=== PATIENT | male | born 1975 | race Caucasian/White ===

== ENCOUNTER → 2018-12-09 | Outpatient (REF) | LOC: AUD 09:33 | PROVIDERS: ATTEND Internal Medicine | DX: Z46.1 Encounter for fitting and adjustment of hearing aid (principal) | CPT/HCPCS: 92552 ==

== ENCOUNTER 2019-03-17 14:27 | Emergency (ER) | payer OTHER ==
[2019-03-17 14:32] VITALS: BP 133/74
--- NOTE | 2019-03-17 14:40 | ER Report ---
History and Physical Time Seen By MD: 14:39 Hx. of Stated Complaint: pt caught l middle finger between 2 large rocks 1 hour ago. HPI/ROS CHIEF COMPLAINT: Trauma to the finger HISTORY OF PRESENT ILLNESS: 43-year-old male who was outside working moving [place] a local park a rock fell on his fingers getting obvious crush injury to the nailbed of his index protection middle finger of his nondominant left hand no other injuries noted REVIEW OF SYSTEMS: Respiratory: No cough, no dyspnea. Cardiovascular: No chest pain, no palpitations. Gastrointestinal: No vomiting, no abdominal pain. Musculoskeletal: Left finger pain Remainder of the 14 system rev: Yes Allergies: Coded Allergies: No Known Drug Allergies (Unverified , 03/17/19) Home Meds No Active Prescriptions or Reported Meds Reviewed Nurses Notes: Yes Old Medical Records Reviewed: Yes Hx Substance Use Disorder: No Hx Alcohol Use: Yes (1 nightly) Constitutional Vital Sign - Last 24 Hours 03/17/19 14:32 Temp 98.2 Pulse 61 Resp 20 B/P (MAP) 133/74 Pulse Ox 94 O2 Delivery Room Air Physical Exam General appearance: Alert no distress. Respiratory: Chest is non tender, lungs are clear to auscultation. Cardiac: Regular rate and rhythm [ ] Left hand examination examination N shows an obvious crush injury to the left distal tuft of the finger involving the proximal nailbed nail is still intact there is an obvious laceration and around the proximal nail bed able to flex the PIP/DIP neurovascular intact otherwise unremarkable DIFFERENTIAL DIAGNOSIS: After history and physical exam differential diagnosis was considered for nail finger crush injury Medical Decision Making ED Course/Re-evaluation ED Course ED course 43 year male who had his finger crushed between 2 rocks an obvious laceration proximal to the to the nail bed of his dominant middle finger of his left hand 4 sutures were placed Procedural note patient had a digital block performed with good anesthesia had 4 interrupted sutures placed proximal in tacking down the nailbed and nail is still intact at time of procedure patient will be cleaned sterilely dressed copiously irrigated prior to procedure patient tolerated well sterile dressing applied after Orthopedics we consult due to a small distal tuft fracture to confirm that this is not requiring wash on the OR and then have him follow up accordingly we'll start him on by mouth antibiotics Decision to Disposition Date: Mar 17, 2019 Decision to Disposition Time: 15:47 Depart Departure Latest Vital Signs Vital Signs Date Time Temp Pulse Resp B/P (MAP) Pulse Ox O2 Delivery O2 Flow Rate FiO2 03/17/19 14:32 98.2 61 20 133/74 94 Room Air Impression: Primary Impression: Open fracture Condition: Improved Disposition: HOME OR SELF-CARE Referrals: LOUANN BELL MD 5 Days New Scripts No Active Prescriptions or Reported Meds Patient Instructions: Open Finger Fracture ([facility]) CAMACHO AMEZQUITA MD Mar 17, 2019 14:42
[2019-03-17] MEDS ORDERED: DIPHTH/TETANUS/ACEL. PERTUSSIS IM ONLY ONE (14:45)
--- NOTE | 2019-03-17 15:15 | RADIOLOGY IMAGING REPORT ---
FACILITY: [facility] PATIENT NAME: Morris Johnson : 1975 MR: [id number] V: [id number] EXAM DATE: ORDERING PHYSICIAN: CAMACHO AMEZQUITA TECHNOLOGIST: Location: [facility] Patient: Morris Johnson : 1975 Visit/Account:[id number] Date of Sevice: 03/17/2019 Exam type: HAND LIMITED LEFT History: trauma, smashed left third finger nail Comparison: None. Findings: Two views were submitted. There is a small fracture through the distal tuft of the distal phalanx of the left third finger with approximate 2 mm diastases of the fracture fragments. There is associate d soft tissue swelling IMPRESSION: 1. Small fracture through the distal tuft of the distal phalanx of the left third finger with approx imately 2 mm diastases of the fracture fragments and associated soft tissue swelling Report Dictated By: Diamante Schultz MD at 03/17/2019 3:10 PM Report E-Signed By: Diamante Schultz MD at 03/17/2019 3:11 PM [email or web address]
== END 2019-03-17 16:08 | disposition home or self-care (01) ==
LOC: ER 14:44
DX: S62.633B Displaced fracture of distal phalanx of left middle finger, initial encounter for open fracture (principal)
CPT/HCPCS: 90471; 90715; 99283